=== PATIENT | female | born 1960 | race Caucasian/White ===

== ENCOUNTER 2017-07-02 11:36 | Emergency (ER) | payer MEDICARE, MEDICAID ==
[~2017-07-02] VITALS: Ht 154.9 cm; Wt 110.0 kg
[~2017-07-02 11:36] MED LIST: ASPIRIN ADULT L81 MG PO; ASPIRIN CHEWABL81 MG PO; ATENOLOL50 MG PO; ATORVASTATIN CA40 MG PO; FLORASTOR250 M1 PO; LASIX 40 MG TAB40 MG PO; LORTAB 5/3255 MG PO; METFORMIN500 MG PO; NITROSTAT0.4 MG SL; PEPTO BISMOL30 ML PO; PRAVASTATIN20 MG PO; RAMIPRIL2.5 MG PO; ROPINIROLE5 MG PO; SERTRALINE50 MG PO; VALPROIC ACD250 M1 PO; WALKER ADULT
[2017-07-02] MEDS ORDERED: DIVALPROEX SOD500 M2 PO (12:34)
[2017-07-02] MEDS ORDERED: ALTACE5 MG PO (12:36)
[2017-07-02] MEDS ORDERED: ROPINIROLE HCL0.5 MG PO (12:36)
[2017-07-02] MEDS ORDERED: VICTOZA18 MG/3 ML SC (12:37)
[2017-07-02] MEDS ORDERED: ASPIRIN 8181 MG PO (12:38)
[2017-07-02] MEDS ORDERED: TIZANIDINE HCL2 M1 PO (12:38)
[2017-07-02] MEDS ORDERED: EC-NAPROSYN500 MG PO (13:35)
[2017-07-02] MEDS ORDERED: TRAMADOL HYDROC50 MG PO (13:35)
[2017-07-02 13:45] VITALS: BP 116/60
== END 2017-07-02 13:45 | disposition home or self-care (01) ==
LOC: ED 11:36
DX: M76.61 Achilles tendinitis, right leg (principal)

== ENCOUNTER 2017-07-18 16:09 | Emergency (ER) | payer MEDICARE, MEDICAID ==
[~2017-07-18] VITALS: Ht 160 cm; Wt 110.5 kg
[~2017-07-18 16:09] MED LIST changes: +ALTACE5 MG PO; +ASPIRIN 8181 MG PO; +DIVALPROEX SOD500 M2 PO; +EC-NAPROSYN500 MG PO; +ROPINIROLE HCL0.5 MG PO; +TIZANIDINE HCL2 M1 PO; +TRAMADOL HYDROC50 MG PO; +VICTOZA18 MG/3 ML SC
[2017-07-18 17:43] LABS: HEMATOCRIT 39.2 % (37.0-47.0); HEMOGLOBIN 12.4 g/dl (12.0-16.0); IMMATURE GRANULOCYTES 0.5 % (0.0-1.0); MEAN CELL VOLUME 85.2 fL CALC (80.0-100.0); MEAN CORPUSCULAR HGB CONC 31.6 g/L CALC (32.0-36.0); NEUT# 5.34 thou/uL (2.00-7.15); RED BLOOD COUNT 4.6 mill/uL (4.20-5.60); RED CELL DISTRI WIDTH 13.7 % (11.5-15.5)
[2017-07-18 17:58] LABS: ALBUMIN 4.5 g/dL (3.2-5.0); ALKALINE PHOSPHATASE 96 u/l (38-126); AMYLASE 56 u/l (30-110); ANION GAP 21 (6-22 (CALC)); BILIRUBIN, TOTAL 1.9 mg/dL (0.0-1.4); BUN 13 mg/dL (7-17); BUN/CREATININE RATIO 18 (12-20 (CALC)); CALCIUM 9.7 mg/dL (8.4-10.2); CARBON DIOXIDE 28 mmol/l (22-30); CHLORIDE 98 mmol/l (95-108); CREATININE 0.7 mg/dL (0.5-1.0); GFR > 60 ML/MIN (>=60 (CALC)); GFR FOR AFR.AMER. > 60 ML/MIN (>=60 (CALC)); GLUCOSE 125 mg/dL (65-105); LIPASE 214 u/l (23-300); POTASSIUM 4.7 mmol/l (3.5-5.1); SGOT/AST 221 u/l (14-36); SGPT/ALT 117 u/l (9-52); SODIUM 143 mmol/l (137-146); TOTAL PROTEIN 7.7 g/dL (6.3-8.2)
[2017-07-18 18:07] LABS: MYOGLOBIN 24 ng/mL (0 - 62)
[2017-07-18 20:51] LABS: URINE BILIRUBIN - DIPSTICK NEGATIVE (NEGATIVE); URINE BLOOD DIPSTICK NEGATIVE (NEGATIVE); URINE CLARITY CLEAR; URINE COLOR YELLOW; URINE GLUCOSE - DIPSTICK NEGATIVE (NEGATIVE); URINE KETONE NEGATIVE (NEGATIVE); URINE LEUK ESTERASE NEGATIVE (NEGATIVE); URINE NITRITE - DIPSTICK NEGATIVE (Negative); URINE PH 6.5 (4.5-8.0); URINE PROTEIN - DIPSTICK NEGATIVE (NEG-TRACE)
[2017-07-18 21:34] VITALS: BP 118/72
== END 2017-07-18 21:33 | disposition home or self-care (01) ==
LOC: ED 16:09
PROVIDERS: Emergency Medicine
DX: R19.7 Diarrhea, unspecified (principal); K80.80 Other cholelithiasis without obstruction; E11.9 Type 2 diabetes mellitus without complications; I10 Essential (primary) hypertension; M19.90 Unspecified osteoarthritis, unspecified site
CPT/HCPCS: Q9967

== ENCOUNTER 2018-07-15 08:45 | Day surgery (SDC) | payer MEDICARE, MEDICAID ==
[~2018-07-15 08:45] MED LIST changes: +PHENTERMINE37.5 M1 PO
[2018-07-15 13:26] VITALS: BP 106/53
== END 2018-07-15 13:55 | disposition home or self-care (01) ==
LOC: ENDO 08:45
PROVIDERS: ATTEND Surgery
PROC: 0DJD8ZZ Inspection of Lower Intestinal Tract, Via Natural or Artificial Opening Endoscopic (ICD-10-PCS; principal; 2018-07-15)
DX: Z12.11 Encounter for screening for malignant neoplasm of colon (principal); Q43.8 Other specified congenital malformations of intestine

== ENCOUNTER 2018-08-26 08:43 | Day surgery (SDC) | payer MEDICARE, MEDICAID ==
[~2018-08-26] VITALS: Ht 160 cm; Wt 110.7 kg
[2018-08-26] MEDS ORDERED: GABAPENTIN300 M2 PO (11:03)
[2018-08-26] MEDS ORDERED: IBUPROFEN PO (11:03)
[2018-08-26] MEDS ORDERED: PERCOCET 5/325M1 TAB PO (11:03)
[2018-08-26 13:12] VITALS: BP 104/54
== END 2018-08-26 12:05 | disposition home or self-care (01) ==
LOC: ORM 08:43
PROVIDERS: ATTEND Surgery
PROC: 0D5QXZZ Destruction of Anus, External Approach (ICD-10-PCS; principal; 2018-08-26)
DX: A63.0 Anogenital (venereal) warts (principal); I10 Essential (primary) hypertension; E11.9 Type 2 diabetes mellitus without complications; E78.5 Hyperlipidemia, unspecified
CPT/HCPCS: C9290

== ENCOUNTER → 2018-12-11 | Outpatient (REF) | payer MEDICARE, MEDICAID ==
[~2018-12-11] MED LIST changes: +GABAPENTIN300 M2 PO; +IBUPROFEN PO; +PERCOCET 5/325M1 TAB PO
[2018-12-11 09:57] LABS: HEMATOCRIT 37.6 % (37.0-47.0); HEMOGLOBIN 11.9 g/dl (12.0-16.0); IMMATURE GRANULOCYTES 0.9 % (0.0-5.0); MEAN CELL VOLUME 86.8 fL CALC (80.0-100.0); MEAN CORPUSCULAR HGB 27.5 pG CALC (26.0-32.0); MEAN CORPUSCULAR HGB CONC 31.6 g/L CALC (32.0-36.0); NEUT# 5.52 thou/uL (2.00-7.15); RED BLOOD COUNT 4.33 mill/uL (4.20-5.60); RED CELL DISTRI WIDTH 13.6 % (11.5-15.5)
[2018-12-11 10:25] LABS: URINE BILIRUBIN - DIPSTICK NEGATIVE (NEGATIVE); URINE BLOOD DIPSTICK NEGATIVE (NEGATIVE); URINE COLOR YELLOW; URINE GLUCOSE - DIPSTICK NEGATIVE (NEGATIVE); URINE KETONE TRACE mg/dL (NEGATIVE); URINE LEUK ESTERASE NEGATIVE (Negative); URINE NITRITE - DIPSTICK NEGATIVE (Negative); URINE PROTEIN - DIPSTICK NEGATIVE (NEG-TRACE); URINE UROBILINOGEN - DIPSTICK 0.2 E.U./dL (0.2)
[2018-12-11 10:30] LABS: URINE CLARITY CLEAR
[2018-12-11 10:46] LABS: ALBUMIN 4.4 g/dL (3.2-5.0); ALKALINE PHOSPHATASE 85 u/l (38-126); ANION GAP 18 (6-22 (CALC)); BILIRUBIN, TOTAL 0.8 mg/dL (0.0-1.4); BUN 14 mg/dL (7-17); BUN/CREATININE RATIO 18 (12-20 (CALC)); CALCULATED LDLCHOLESTEROL 58 mg/dL (62-129 (CALC)); CARBON DIOXIDE 28 mmol/l (22-30); CHLORIDE 97 mmol/l (95-108); CHOLESTEROL HDL RATIO 3.2 (<4.4 (CALC)); CREATININE 0.8 mg/dL (0.5-1.0); GFR > 60 ML/MIN (>=60 (CALC)); GFR FOR AFR.AMER. > 60 ML/MIN (>=60 (CALC)); HDL CHOLESTEROL 44 mg/dL (>=40); SGOT/AST 12 u/l (14-36); SODIUM 138 mmol/l (137-146); TOTAL CHOLESTEROL 139 mg/dl (0-199); TOTAL TRIGLYCERIDES 188 mg/dl (30-149); VLDL CHOLESTROL 38 mg/dl (2-49 (CALC))
[2018-12-11 10:51] LABS: POTASSIUM 4.7 mmol/l (3.5-5.1)
[2018-12-11 11:12] LABS: TSH, 3RD GENERATION 3.05 uIU/mL (0.47 - 4.68)
== END | disposition home or self-care (01) ==
LOC: LAB 09:17
PROVIDERS: ATTEND Internal Medicine
DX: E11.40 Type 2 diabetes mellitus with diabetic neuropathy, unspecified (principal); R30.0 Dysuria

== ENCOUNTER 2021-08-12 18:03 | Emergency (ER) | payer MEDICARE, MEDICAID ==
[~2021-08-12] VITALS: Ht 154.9 cm; Wt 115.9 kg
[2021-08-12] MEDS ORDERED: CLEOCIN300 MG PO (19:16)
[2021-08-12] MEDS ORDERED: HYDROCO/APAP1 TA9 PO (19:17)
[2021-08-12 19:40] VITALS: BP 134/61
== END 2021-08-12 19:40 | disposition home or self-care (01) ==
LOC: ED 18:03
DX: K04.7 Periapical abscess without sinus (principal); I10 Essential (primary) hypertension; E11.9 Type 2 diabetes mellitus without complications; G20 Parkinson's disease; I89.0 Lymphedema, not elsewhere classified; Z79.84 Long term (current) use of oral hypoglycemic drugs

== ENCOUNTER 2021-09-15 19:18 | Emergency (ER) | payer MEDICARE, MEDICAID ==
[~2021-09-15] VITALS: Ht 160 cm; Wt 114.5 kg
[~2021-09-15 19:18] MED LIST changes: +CLEOCIN300 MG PO; +HYDROCO/APAP1 TA9 PO; -ROPINIROLE HCL0.5 MG PO; +ROPINIROLE HYD0.5 MG PO
[2021-09-15] MEDS ORDERED: CARB/LEVO SR PO (19:59)
[2021-09-15] MEDS ORDERED: TRESIBA FL200 UNIT/M SC (20:00)
[2021-09-15] MEDS ORDERED: HYDROCODONE BIT1 TA9 PO (20:01)
[2021-09-15] MEDS ORDERED: CYANOCOBAL1000 MCG/M IM (20:03)
[2021-09-15] MEDS ORDERED: VITAMIN C500 MG PO (20:03)
[2021-09-15] MEDS ORDERED: DITROPAN5 MG/TA1 PO (20:04)
[2021-09-15] MEDS ORDERED: CLARITIN10 M2 PO (20:05)
[2021-09-15 20:25] LABS: HEMATOCRIT 34.9 % (37.0-47.0); IMMATURE GRANULOCYTES 0.9 % (0.0-5.0); MEAN CELL VOLUME 82.7 fL CALC (80.0-100.0); MEAN CORPUSCULAR HGB 26.1 pG CALC (26.0-32.0); MEAN CORPUSCULAR HGB CONC 31.5 g/dL CAL (32.0-36.0); NEUT# 9.44 thou/uL (2.00-7.15); RED BLOOD COUNT 4.22 mill/uL (4.20-5.60); RED CELL DISTRI WIDTH 14.7 % (11.5-15.5)
[2021-09-15 20:33] LABS: ALBUMIN 4.2 g/dL (3.2-5.0); ALKALINE PHOSPHATASE 92 u/l (38-126); AMYLASE 43 u/l (30-110); ANION GAP 19 (6-22 (CALC)); BUN 15 mg/dL (8-23); BUN/CREATININE RATIO 16 (12-20 (CALC)); CARBON DIOXIDE 23 mmol/l (22-30); CHLORIDE 98 mmol/l (95-108); GFR 56 ML/MIN (>=60 (CALC)); GFR FOR AFR.AMER. > 60 ML/MIN (>=60 (CALC)); LIPASE 79 u/l (23-300); MAGNESIUM 1.8 mg/dL (1.6-2.3); POTASSIUM 4.8 mmol/l (3.5-5.1); SODIUM 135 mmol/l (137-146); TOTAL PROTEIN 7.5 g/dL (6.3-8.2)
[2021-09-15 20:34] LABS: BILIRUBIN, TOTAL 1.4 mg/dL (0.0-1.4); SGOT/AST 32 u/l (9-36)
[2021-09-15 20:37] LABS: ACT PARTIAL THROMBO TIME 22.1 SECONDS (20.0-32.5); INTERNATIONAL NORMALIZED RATIO 0.9 RATIO (0.7-1.3); PROTHROMBIN TIME 9.8 SECONDS (9.0-12.5)
[2021-09-15 20:41] LABS: D-DIMER 1.04 mg/L (0.19-0.60)
[2021-09-15 20:49] LABS: URINE BILIRUBIN - DIPSTICK NEGATIVE (NEGATIVE); URINE BLOOD DIPSTICK TRACE-INTACT (NEGATIVE); URINE COLOR YELLOW; URINE GLUCOSE - DIPSTICK NEGATIVE (NEGATIVE); URINE KETONE NEGATIVE (NEGATIVE); URINE PROTEIN - DIPSTICK NEGATIVE (NEG-TRACE); URINE SPECIFIC GRAVITY 1.015; URINE UROBILINOGEN - DIPSTICK 0.2 E.U./dL (0.2)
[2021-09-15 20:55] LABS: URINE LEUK ESTERASE SMALL (NEGATIVE); URINE NITRITE - DIPSTICK POSITIVE (Negative)
[2021-09-15 20:59] LABS: URINE BACTERIA MANY hpf; URINE SQUAMOUS EPITHELIAL CELL FEW EPI/hpf (0-FEW); URINE WBC 20-50 WBC/hpf (0-5)
[2021-09-15] MEDS ORDERED: IMODIUM2 MG PO (23:21)
[2021-09-15] MEDS ORDERED: PROMETHAZINE HY25 M1 PO (23:21)
[2021-09-15 23:35] VITALS: BP 115/72
--- NOTE | 2021-09-17 15:24 | NUR ---
Called patient to let her know that urine sample result came back and Dr. Gibbons prescribed Keflex 500mg PO q6h X 5 days. Called in the presciption for Keflex 500mg PO q6h x 5 days to patient preferred pharmacy [facility] in [place].
== END 2021-09-15 23:50 | disposition home or self-care (01) ==
LOC: ED 19:18
PROVIDERS: Family Medicine
DX: A08.4 Viral intestinal infection, unspecified (principal); I10 Essential (primary) hypertension; E11.9 Type 2 diabetes mellitus without complications; G20 Parkinson's disease; Z79.84 Long term (current) use of oral hypoglycemic drugs; Z79.4 Long term (current) use of insulin; Z20.822 Contact with and (suspected) exposure to COVID-19
CPT/HCPCS: Q9967

== ENCOUNTER 2021-10-04 07:28 | Observation (INO) | payer MEDICARE, MEDICAID ==
[~2021-10-04] VITALS: Ht 160 cm; Wt 120.0 kg
[~2021-10-04 07:28] MED LIST changes: +CARB/LEVO1 TA5 PO; +CLARITIN10 M2 PO; +CYANOCOBAL1000 MCG/M IM; +DITROPAN5 MG/TA1 PO; +HYDROCODONE BIT1 TA9 PO; +IMODIUM2 MG PO; +PROMETHAZINE HY25 M1 PO; +TRESIBA FL100 UNIT/M SC; +VITAMIN C500 MG PO
[2021-10-04 08:08] LABS: URINE BILIRUBIN - DIPSTICK NEGATIVE (NEGATIVE); URINE COLOR YELLOW; URINE GLUCOSE - DIPSTICK 100 mg/dL (NEGATIVE); URINE KETONE NEGATIVE (NEGATIVE); URINE PROTEIN - DIPSTICK NEGATIVE (NEG-TRACE); URINE SPECIFIC GRAVITY 1.025; URINE UROBILINOGEN - DIPSTICK 0.2 E.U./dL (0.2)
[2021-10-04 08:12] LABS: URINE LEUK ESTERASE SMALL (NEGATIVE); URINE NITRITE - DIPSTICK NEGATIVE (Negative)
[2021-10-04 08:15] LABS: URINE BACTERIA RARE hpf; URINE BLOOD DIPSTICK NEGATIVE (NEGATIVE); URINE EPITHELIAL CELLS FEW EPI/hpf (0-FEW); URINE MUCUS FEW hpf (NONE-FEW); URINE RBC 0-2 RBC/hpf (0-5)
[2021-10-04 08:26] LABS: HEMATOCRIT 33.4 % (37.0-47.0); IMMATURE GRANULOCYTES 0.4 % (0.0-5.0); MEAN CELL VOLUME 86.1 fL CALC (80.0-100.0); MEAN CORPUSCULAR HGB 25.8 pG CALC (26.0-32.0); MEAN CORPUSCULAR HGB CONC 29.9 g/dL CAL (32.0-36.0); NEUT# 8.87 thou/uL (2.00-7.15); RED BLOOD COUNT 3.88 mill/uL (4.20-5.60); RED CELL DISTRI WIDTH 15.3 % (11.5-15.5)
[2021-10-04 08:37] LABS: ALBUMIN 4.2 g/dL (3.2-5.0); ALKALINE PHOSPHATASE 129 u/l (38-126); AMYLASE 64 u/l (30-110); BUN 21 mg/dL (8-23); BUN/CREATININE RATIO 21 (12-20 (CALC)); CHLORIDE 99 mmol/l (95-108); GFR 56 ML/MIN (>=60 (CALC)); GFR FOR AFR.AMER. > 60 ML/MIN (>=60 (CALC)); LIPASE 145 u/l (23-300); POTASSIUM 4.3 mmol/l (3.5-5.1); SGOT/AST 15 u/l (9-36); SODIUM 137 mmol/l (137-146); TOTAL PROTEIN 7.5 g/dL (6.3-8.2)
[2021-10-04 08:44] LABS: ANION GAP 14 (6-22 (CALC)); BILIRUBIN, TOTAL 0.6 mg/dL (0.0-1.4); CARBON DIOXIDE 28 mmol/l (22-30)
[2021-10-04 08:50] LABS: ACT PARTIAL THROMBO TIME 20.7 SECONDS (20.0-32.5); PROTHROMBIN TIME 10.2 SECONDS (9.0-12.5)
[2021-10-04] MEDS ORDERED: CLOPIDOGREL75 MG PO (11:41)
[2021-10-04 12:21] VITALS: BP 133/63
[2021-10-04 14:45] VITALS: BP 129/62
[2021-10-04 19:00] VITALS: BP 119/57
[2021-10-05] VITALS (11 sets, daily range): BP systolic 115–150; BP diastolic 56–76
[2021-10-05 05:28] LABS: HEMATOCRIT 30.1 % (37.0-47.0); HEMOGLOBIN 9.2 g/dl (12.0-16.0); IMMATURE GRANULOCYTES 0.8 % (0.0-5.0); MEAN CELL VOLUME 84.8 fL CALC (80.0-100.0); MEAN CORPUSCULAR HGB 25.9 pG CALC (26.0-32.0); MEAN CORPUSCULAR HGB CONC 30.6 g/dL CAL (32.0-36.0); NEUT# 4.87 thou/uL (2.00-7.15); RED BLOOD COUNT 3.55 mill/uL (4.20-5.60); RED CELL DISTRI WIDTH 15.3 % (11.5-15.5)
[2021-10-05 05:47] LABS: ALKALINE PHOSPHATASE 79 u/l (38-126); ANION GAP 11 (6-22 (CALC)); BILIRUBIN, TOTAL 0.7 mg/dL (0.0-1.4); BUN 16 mg/dL (8-23); BUN/CREATININE RATIO 17 (12-20 (CALC)); CARBON DIOXIDE 28 mmol/l (22-30); CHLORIDE 104 mmol/l (95-108); GFR 56 ML/MIN (>=60 (CALC)); GFR FOR AFR.AMER. > 60 ML/MIN (>=60 (CALC)); POTASSIUM 4.3 mmol/l (3.5-5.1); SGOT/AST 13 u/l (9-36); SODIUM 139 mmol/l (137-146)
[2021-10-05 05:54] LABS: ALBUMIN 3.1 g/dL (3.2-5.0); TOTAL PROTEIN 5.8 g/dL (6.3-8.2)
[2021-10-06 03:40] VITALS: BP 140/78
[2021-10-06 05:35] LABS: HEMATOCRIT 28.5 % (37.0-47.0); HEMOGLOBIN 8.7 g/dl (12.0-16.0); MEAN CELL VOLUME 85.3 fL CALC (80.0-100.0); MEAN CORPUSCULAR HGB CONC 30.5 g/dL CAL (32.0-36.0); RED BLOOD COUNT 3.34 mill/uL (4.20-5.60); RED CELL DISTRI WIDTH 15.2 % (11.5-15.5)
[2021-10-06 05:48] LABS: ANION GAP 12 (6-22 (CALC)); BUN 12 mg/dL (8-23); BUN/CREATININE RATIO 13 (12-20 (CALC)); CARBON DIOXIDE 26 mmol/l (22-30); CHLORIDE 106 mmol/l (95-108); CREATININE 0.9 mg/dL (0.5-1.0); GFR > 60 ML/MIN (>=60 (CALC)); GFR FOR AFR.AMER. > 60 ML/MIN (>=60 (CALC)); MAGNESIUM 1.8 mg/dL (1.6-2.3); POTASSIUM 4.4 mmol/l (3.5-5.1); SODIUM 139 mmol/l (137-146)
[2021-10-06 08:32] VITALS: BP 167/74
[2021-10-06 13:00] VITALS: BP 116/56
[2021-10-06 15:16] VITALS: BP 121/50
[2021-10-06 18:35] VITALS: BP 124/64
[2021-10-07 00:09] VITALS: BP 132/63
[2021-10-07 03:49] VITALS: BP 138/69
[2021-10-07 05:15] LABS: HEMATOCRIT 29.4 % (37.0-47.0); MEAN CELL VOLUME 85.2 fL CALC (80.0-100.0); MEAN CORPUSCULAR HGB 26.1 pG CALC (26.0-32.0); MEAN CORPUSCULAR HGB CONC 30.6 g/dL CAL (32.0-36.0); RED BLOOD COUNT 3.45 mill/uL (4.20-5.60); RED CELL DISTRI WIDTH 15.4 % (11.5-15.5)
[2021-10-07 05:55] LABS: ANION GAP 13 (6-22 (CALC)); BUN 13 mg/dL (8-23); BUN/CREATININE RATIO 12 (12-20 (CALC)); CARBON DIOXIDE 22 mmol/l (22-30); CHLORIDE 107 mmol/l (95-108); CREATININE 1.1 mg/dL (0.5-1.0); GFR 50 ML/MIN (>=60 (CALC)); GFR FOR AFR.AMER. > 60 ML/MIN (>=60 (CALC)); MAGNESIUM 1.8 mg/dL (1.6-2.3); POTASSIUM 4.3 mmol/l (3.5-5.1); SODIUM 138 mmol/l (137-146)
[2021-10-07 07:20] VITALS: BP 139/70
[2021-10-07 08:55] VITALS: BP 139/70
[2021-10-07] MEDS ORDERED: HYDROCO/APAP1 TA9 PO (11:18)
== END 2021-10-07 15:00 | disposition home health service (06) ==
LOC: ED 07:28 → ED-I 10:00 → ED 10:17 → MS2 10:18
PROVIDERS: Nurse Practitioner; ADMIT Hospitalist; ATTEND Hospitalist
PROC: 0FT44ZZ Resection of Gallbladder, Percutaneous Endoscopic Approach (ICD-10-PCS; principal; 2021-10-05)
PROC: 3E02340 Introduction of Influenza Vaccine into Muscle, Percutaneous Approach (ICD-10-PCS; 2021-10-06)
PROC: 3E0234Z Introduction of Serum, Toxoid and Vaccine into Muscle, Percutaneous Approach (ICD-10-PCS; 2021-10-06)
DX: K80.12 Calculus of gallbladder with acute and chronic cholecystitis without obstruction (principal); I10 Essential (primary) hypertension; E11.9 Type 2 diabetes mellitus without complications; I25.10 Atherosclerotic heart disease of native coronary artery without angina pectoris; E87.2 Acidosis; E78.5 Hyperlipidemia, unspecified; I89.0 Lymphedema, not elsewhere classified; G20 Parkinson's disease; E66.9 Obesity, unspecified; Z23 Encounter for immunization; Z60.2 Problems related to living alone; Z79.84 Long term (current) use of oral hypoglycemic drugs; Z79.4 Long term (current) use of insulin; Z68.42 Body mass index [BMI] 45.0-49.9, adult; Z79.02 Long term (current) use of antithrombotics/antiplatelets; Z20.822 Contact with and (suspected) exposure to COVID-19
CPT/HCPCS: G0378; J1610; J1650; Q9967

== ENCOUNTER 2022-03-01 12:43 | Emergency (ER) | payer MEDICARE, MEDICAID ==
[~2022-03-01] VITALS: Ht 160 cm; Wt 115.4 kg
[~2022-03-01 12:43] MED LIST changes: +CLOPIDOGREL75 MG PO
[2022-03-01 13:09] VITALS: BP 126/53
[2022-03-01 13:30] VITALS: BP 134/54
[2022-03-01 14:31] VITALS: BP 110/49
[2022-03-01] MEDS ORDERED: AMOX/K CLAV875 M1 PO (14:31)
[2022-03-01 15:00] VITALS: BP 112/53
== END 2022-03-01 15:15 | disposition home or self-care (01) ==
LOC: ED 12:43
DX: L03.113 Cellulitis of right upper limb (principal); I10 Essential (primary) hypertension; E11.9 Type 2 diabetes mellitus without complications; E78.5 Hyperlipidemia, unspecified; I89.0 Lymphedema, not elsewhere classified; G20 Parkinson's disease; Z79.84 Long term (current) use of oral hypoglycemic drugs; Z79.4 Long term (current) use of insulin

== ENCOUNTER 2022-05-28 10:03 | Emergency (ER) | payer MEDICARE, OTHER ==
[~2022-05-28] VITALS: Ht 154.9 cm; Wt 114.3 kg
[~2022-05-28 10:03] MED LIST changes: +AMOX/K CLAV875 M1 PO
[2022-05-28 10:10] VITALS: BP 154/66
[2022-05-28 10:30] VITALS: BP 130/70
[2022-05-28 11:00] VITALS: BP 122/57
[2022-05-28 11:30] VITALS: BP 127/69
[2022-05-28 11:46] VITALS: BP 127/69
== END 2022-05-28 11:48 | disposition home or self-care (01) ==
LOC: ED 10:03
DX: S60.222A Contusion of left hand, initial encounter (principal); S60.512A Abrasion of left hand, initial encounter; W22.09XA Striking against other stationary object, initial encounter; Y93.K9 Activity, other involving animal care; Y92.009 Unspecified place in unspecified non-institutional (private) residence as the place of occurrence of the external cause; I11.0 Hypertensive heart disease with heart failure; E11.9 Type 2 diabetes mellitus without complications; E78.5 Hyperlipidemia, unspecified; G20 Parkinson's disease

== ENCOUNTER 2022-07-17 10:40 | Emergency (ER) | payer MEDICARE, OTHER ==
[~2022-07-17] VITALS: Ht 154.9 cm; Wt 115.9 kg
[2022-07-17] MEDS ORDERED: NAPROXEN500 MG PO (11:27)
[2022-07-17 11:31] VITALS: BP 127/67
[2022-07-17 11:45] VITALS: BP 127/67
== END 2022-07-17 12:02 | disposition home or self-care (01) ==
LOC: ED 10:40
DX: M19.031 Primary osteoarthritis, right wrist (principal); I10 Essential (primary) hypertension; E11.9 Type 2 diabetes mellitus without complications; E78.5 Hyperlipidemia, unspecified; G20 Parkinson's disease; Z79.84 Long term (current) use of oral hypoglycemic drugs; Z79.4 Long term (current) use of insulin